=== PATIENT | female | born 1980 | race Two or more races ===

== ENCOUNTER 2024-09-06 13:53 | Inpatient (IN) | payer OTHER ==
[~2024-09-06] VITALS: Ht 160 cm; Wt 74.8 kg
--- NOTE | 2024-09-06 14:29 | NUR ---
SE RECIBE PACIENTE ALERTA Y ORIENTADA X3 REFIERE VENIR POR ABCESO EN AREA DE LA MANDIBULA QUE EMPEZO A SALIR HACE DOS PAGE.
[2024-09-06] MEDS ORDERED: 0.9 % SODIUM CHLORIDE 500 ML IV ONE (15:45)
[2024-09-06] MEDS ORDERED: CEFTRIAXONE SODIUM 2,000 MG VIAL IV ONE (16:00)
[2024-09-06 16:22] LABS: HEMATOCRIT 41.5 % (36.0-45.00); MEAN CORPUSCULAR HEMOGLOBIN 30.8 pg (27.00-32.0); MEAN CORPUSCULAR HGB CONC 33.9 g/dl (32.0-36.0); PLATELET COUNT 294 K/uL (150-450); RED BLOOD COUNT 4.56 M/uL (4.00-6.00); RED CELL DISTRIBUTION WIDTH 13.5 % (11.5-14.5)
--- NOTE | 2024-09-06 16:37 | NUR ---
PACIENTE EVALUADA POR ANDREAS [place] [facility], SE EDUCA ACERCA DEL MISMO Y REFIERE ENTENDER. SE CANALIZA Y COLECTAN MUESTRAS DE LABORATORIO MEDIANTE MEDIDAS ASEPTICAS. SE ADMINISTRAN MEDICAMENTOS DONNA ORDEN MEDICA.
[2024-09-06 16:38] LABS: INR 0.96; PARTIAL THROMBOPLASTIN TIME 29.9 SECONDS (22.0-34.0); PROTHROMBIN TIME 10.5 SECONDS (9.0-11.5)
[2024-09-06 16:47] LABS: ALBUMIN 3.7 gm/dL (3.4-5.0); BILIRUBIN TOTAL 0.77 mg/dL (0.3-1.2); CALCIUM 8.5 mg/dL (8.5-10.1); CREATININE SERUM 0.68 mg/dL (0.55-1.02); GFR 93.57; GLOBULINA 4.2 G/DL (2.4-3.5); POTASSIUM 3.87 mEq/L (3.5-5.1); TOTAL PROTEIN 7.9 gm/dL (6.4-8.2)
[2024-09-06] MEDS ORDERED: KETOROLAC TROMETHAMINE 30 MG VIAL IV ONE (20:15)
[2024-09-06] MEDS ORDERED: DEXAMETHASONE SODIUM PHOSPHATE 4 MG/ML VIAL IV ONE (20:30)
[2024-09-06] MEDS ORDERED: 0.9 % SODIUM CHLORIDE 1,000 ML IV SCH (22:00)
[2024-09-06] MEDS ORDERED: VANCOMYCIN HCL 1,000 MG VIAL IV SCH (22:04)
[2024-09-06] MEDS ORDERED: CEFEPIME HCL 2,000 MG in 0.9 % SODIUM CHLORIDE 100 ML IV SCH (22:04)
[2024-09-06] MEDS ORDERED: FAMOTIDINE/PF 20 MG in 0.9 % SODIUM CHLORIDE 8 ML IV PUSH SCH (22:05)
[2024-09-06] MEDS ORDERED: DEXAMETHASONE 4 MG TABLET PO ONE (22:15)
[2024-09-06] MEDS ORDERED: ACETAMINOPHEN 500 MG GEL..CAP PO PRN (22:15)
[2024-09-06] MEDS ORDERED: KETOROLAC TROMETHAMINE 15 MG VIAL IU ONE (22:15)
[2024-09-07 01:08] LABS: INR 0.98; PARTIAL THROMBOPLASTIN TIME 29.9 SECONDS (22.0-34.0); PROTHROMBIN TIME 10.7 SECONDS (9.0-11.5)
[2024-09-07 02:10] VITALS: BP 99/60
[2024-09-07 07:56] LABS: HEMATOCRIT 37.4 % (36.0-45.00); HEMOGLOBIN 12.9 g/dL (12.0-15.00); MEAN CELL VOLUME 89.4 fL (80.00-100.00); MEAN CORPUSCULAR HGB CONC 34.6 g/dl (32.0-36.0); PLATELET COUNT 262 K/uL (150-450); RED BLOOD COUNT 4.18 M/uL (4.00-6.00); RED CELL DISTRIBUTION WIDTH 12.9 % (11.5-14.5)
[2024-09-07 08:26] VITALS: BP 100/60; O2SAT 98
[2024-09-07] MEDS ORDERED: METRONIDAZOLE/SODIUM CHLORIDE 100 ML IV SCH (17:00)
[2024-09-07 17:29] VITALS: BP 116/73; O2SAT 97
[2024-09-08 01:15] VITALS: BP 99/63
[2024-09-08 08:25] VITALS: BP 100/57; O2SAT 97
[2024-09-08 17:26] VITALS: BP 105/76
[2024-09-09 00:42] VITALS: BP 103/63; O2SAT 97
[2024-09-09 08:22] VITALS: BP 102/66; O2SAT 99
[2024-09-09 16:49] VITALS: BP 151/68
[2024-09-09] MEDS ORDERED: LACTOBACILLUS ACIDOPHILUS 1 CAP CAP PO SCH (17:00)
[2024-09-10 01:35] VITALS: BP 112/62; O2SAT 97
[2024-09-10 08:44] LABS: HEMOGLOBIN 11.4 g/dL (12.0-15.00); MEAN CELL VOLUME 88.9 fL (80.00-100.00); MEAN CORPUSCULAR HEMOGLOBIN 30.8 pg (27.00-32.0); MEAN CORPUSCULAR HGB CONC 34.6 g/dl (32.0-36.0); PLATELET COUNT 262 K/uL (150-450); RED BLOOD COUNT 3.72 M/uL (4.00-6.00); RED CELL DISTRIBUTION WIDTH 12.9 % (11.5-14.5)
[2024-09-10 09:08] VITALS: BP 113/70; O2SAT 98
[2024-09-10 09:23] LABS: ALBUMIN 2.7 gm/dL (3.4-5.0); BILIRUBIN TOTAL 0.53 mg/dL (0.3-1.2); CALCIUM 7.8 mg/dL (8.5-10.1); CREATININE SERUM 0.5 mg/dL (0.55-1.02); GFR 133.42; GLOBULINA 2.6 G/DL (2.4-3.5); POTASSIUM 3.95 mEq/L (3.5-5.1); TOTAL PROTEIN 5.3 gm/dL (6.4-8.2)
[2024-09-10 12:13] LABS: URINE APPEARANCE Clear; URINE BILIRRUBIN Negative (NEGATIVE); URINE BLOOD Negative; URINE COLOR Yellow; URINE GLUCOSE Negative (NEGATIVE); URINE KETONE Trace (NEGATIVE); URINE LEUKOCYTE Negative; URINE NITRATE Negative; URINE PROTEIN Negative (NEGATIVE); URINE UROBILINOGEN 0.2 E.U./dl
[2024-09-10 12:20] LABS: URINE BACTERIA 8.8 uL (0.0-1933); URINE EPITHELIAL CELLS 20.5 uL (0.0-38.8); URINE RBC 29.3 uL (0.0-20.8)
[2024-09-10 12:22] LABS: URINE WBC 0.9 uL (0.0-23.2)
== END 2024-09-10 18:25 | disposition home or self-care (01) | DRG 153 ==
LOC: ER 13:55 → MEDJ 22:34
PROVIDERS: General Practice; Nurse Practitioner Family; ADMIT Internal Medicine; ATTEND Internal Medicine
PROC: BW2FYZZ Computerized Tomography (CT Scan) of Neck using Other Contrast (ICD-10-PCS; 2024-09-06)
PROC: 0CJS8ZZ Inspection of Larynx, Via Natural or Artificial Opening Endoscopic (ICD-10-PCS; principal; 2024-09-10)
DX: J36 Peritonsillar abscess (principal)